=== PATIENT | male | born 1965 | race Caucasian/White ===

== ENCOUNTER 2021-05-31 08:00 | Outpatient (CLI) | payer SELFPAY | END 2021-05-31 23:59 | disposition home or self-care (01) | LOC: LAB.S 08:00 | PROVIDERS: ATTEND Physician Assistant Medical | DX: J02.8 Acute pharyngitis due to other specified organisms (principal); Z20.822 Contact with and (suspected) exposure to COVID-19 | CPT/HCPCS: 87070 ==